=== PATIENT | male | born 1945 | race Caucasian/White ===

== ENCOUNTER 2016-08-10 06:05 | Inpatient (IN) | payer MEDICARE, BC ==
[~2016-08-10] VITALS: Ht 170.2 cm; Wt 69.7 kg
[~2016-08-10 06:05] MED LIST: ASA325 MG PO; BENTYL-DPS10 MG PO; CARDURA DPS8 MG PO; COLACE-DPS100 MG PO; FLEXERIL DPS5 MG PO; FLEXERIL-DPS10 MG PO; FLONASE 0.05% D16 GM NS; FLORAJEN460 MG PO; GAS-X125 MG PO; HYDROCODONE 5MG/5 MG PO; MEVACOR20 MG PO; NORVASC5 MG PO; OMEGA-3 DPS1000 MG PO; PAMELOR DPS25 MG PO; PROBIOTIC1 EAC1 PO; TYLENOL DPS325 MG PO; ULTRAM DPS50 MG PO; VITAMIN C500 M1 PO
[2016-08-12] MEDS ORDERED: VOLTAREN 1% GE100 GM TP (13:37)
[2016-08-12] MEDS ORDERED: CARDURA DPS8 MG PO (13:39)
[2016-08-12] MEDS ORDERED: VITAMIN D50000 UNIT PO (13:40)
[2016-08-12] MEDS ORDERED: NEURONTIN DPS100 MG PO ×2 (13:40→13:41)
[2016-08-12] MEDS ORDERED: MULTIPLE VITAM1 EACH PO (13:42)
[2016-08-12] MEDS ORDERED: MIRALAX PACKET17 GM PO (13:43)
[2016-08-12] MEDS ORDERED: SIMETHICONE125 M1 PO (13:44)
[2016-08-12] MEDS ORDERED: DELTASONE DPS5 MG PO (13:45)
[2016-08-12] MEDS ORDERED: SALINE MIST45 ML NS (13:46)
[2016-08-12] MEDS ORDERED: SPORTS CREAM85 GM TP (13:47)
[2016-08-12] MEDS ORDERED: SENOKOT S1 TAB PO (13:49)
[2016-08-12] MEDS ORDERED: OXY IR DPS5 MG PO (13:49)
[2016-08-12] MEDS ORDERED: PROTONIX40 MG PO (13:49)
[2016-08-12] MEDS ORDERED: BENTYL-DPS10 MG PO (13:59)
--- NOTE | 2016-08-12 17:31 | OR ---
ADMIT: 08/10/2016 RM/LOC: 518 [facility] MR#: [id number] [address] [address] DAPHNE AGUILERA [address] [place] [address] Operative/Delivery Room Report SEX: M AGE: 71 : 1945 SURGERY DATE: 08/10/2016 SURGEON: Kwame Alarcon MD CAN HANDLER: 1. Devin Benz PA-C. 2. MARCIAL Haile. PREOPERATIVE DIAGNOSIS: Left hip degenerative joint disease. POSTOPERATIVE DIAGNOSIS: Left hip degenerative joint disease. PROCEDURES: 1. Left anterior total hip arthroplasty. 2. Intra-articular Exparel block. ANESTHESIA: Spinal. COMPLICATIONS: None. ESTIMATED BLOOD LOSS: 200 mL. COMPONENTS: 1. A 52 mm Gription Garfield cup. 2. A hole eliminator. 3. A 36 mm neutral AltrX liner. 4. A 12 mm standard offset Corail stem. 5. A +5, 36 mm metal head. DESCRIPTION OF PROCEDURE: The patient was taken to the operating room. The correct hip was identified and marked in the preop holding area. The preoperative leg lengths were documented. The patient received a spinal anesthetic. At that point, the patient had traction boots applied. The patient was placed on the LAPORTE operative table. A perfect fluoroscopic AP pelvis was obtained along with a perfect AP of the operative hip and printed for preoperative templating purposes. At that point, the left hip was prepped and draped in a standard fashion and an anterior approach was performed. An incision was made lateral and inferior to the anterior superior iliac spine extending distally. Dissection was carried through subcutaneous tissue down to the tensor fascia. The fibers of the tensor fascia were identified in oblique fashion. The tensor fascia was then opened up along its muscle fibers. An Allis clamp was placed on the anterior fascial border. The tensor muscle itself was then swept off with blunt dissection and retracted posteriorly. At that point, the rectus was elevated off the anterior hip capsule. The lateral circumflex vessels were identified and cauterized. A Cobra retractor was placed above the superior femoral neck to retract the tensor posteriorly. The rest of the rectus was elevated off the anterior hip capsule and a second retractor was placed around the medial femoral neck. An L-shaped capsulotomy was perfomed through the hip capsule down to the ADMIT: 08/10/2016 RM/LOC: 518 [facility] MR#: [id number] [address] [address] WILLYDAPHNE KERR [facility] [place] [address] Operative/Delivery Room Report SEX: M AGE: 71 : 1945 intertrochanteric line and extended along the intertrochanteric line to the level of the lesser trochanter. Tag stitches were placed in the medial and lateral border of the hip capsule. We also released the superior hip capsule out of the trochanteric shoulder region. At that point, we placed our Cobra retractors in an intra-articular fashion for improved exposure to complete our capsular releases intra-articularly. A femoral neck cut was then made based on templating using the trochanteric shoulder as a bony landmark. We then externally rotated the hip 20 degrees for improved exposure and removed the femoral head from the acetabulum with no undue difficulty. Once the femoral head was removed, we again completed our capsular release around the inferior femoral neck to the level of lesser trochanter, released the superior capsule off the greater trochanteric shoulder in its entirety. We then placed slight traction on the femur in 20 degrees external rotation and placed a blunt-tip Cobra retractor over the anterior acetabular border. A second blunt Cobra was placed around the posterior acetabular border. All the remaining labrum was excised and a episiotomy performed to the inferior capsule to improve exposure. We cauterized the fovea and removed any remaining tissue in the depth of the acetabulum. We sequentially reamed the acetabulum under direct visualization up to a 51 mm size reamer. We elected to use a 52 mm size acetabular component. We put the acetabular component on a curved java developer consultant and placed it within the depths of the acetabulum. At that point we removed all retractors; brought in fluoroscopy; and again obtained a perfect AP of the pelvis followed by a perfect AP of the hip. Under fluoroscopic guidance, we impacted the acetabular component in approximately 45 degrees of inclination and 20 degrees of anteversion. We had an excellent press fit and no supplemental screws were required. Any peripheral osteophytes were circumferentially removed around the acetabular component. A hole eliminator was placed in the acetabular component and a neutral 36-mm AltrX liner was impacted within the acetabular component. A partial intra-articular block with Exparel was performed at this point in time. Once our acetabular preparation was completed, all the acetabular retractors were removed. We then exposed the femur by rotating it into neutral position and taking all traction off the femur. A femoral elevating hook was placed posterior to the trochanteric ridge. The foot was dropped down to 45 degrees and the leg maximally externally rotated no undue tension. We made sure our inferior capsular release was complete and placed a #1 retractor over the tip of the trochanter. Any remaining capsule was released off the tip of the trochanter and the piriformis tendon and a conjoined tendon were also released for exposure. At that point, you could feel the femur give, and we were able to elevate it up and out of the wound. The femur was externally rotated to approximately 120 degrees and the foot dropped to the floor as the leg was adducted. The trochanteric elevating hook was manually pulled in the anterior lateral direction as the elevating bar was raised to support it. At that point, we had excellent femoral exposure. A [place] retractor was placed over the tip of the trochanter and a femoral neck retractor around the medial calcar region to improve exposure. The proximal femur was opened with a box osteotome and a canal finder was used to identify the femoral canal. The proximal femur was sequentially broached up to a 12 mm Corail broach. We did ADMIT: 08/10/2016 RM/LOC: 518 [facility] MR#: [id number] [facility] [address] [place] [id number] DAPHNE AGUILERA [address] [place] [address] Operative/Delivery Room Report SEX: M AGE: 71 : 1945 overream the distal canal to be sure we did not have a distal femoral fit. At that point, we left the broach in the canal and calcar planed the neck. We then reduced the hip with a standard/high off-set femoral neck and a +5 x 36- mm head. All the retractors and femoral hook were removed. Using manual traction, we were able to reduce the hip into the acetabulum with no undue difficulty. A perfect fluoroscopic AP of the pelvis followed by a perfect AP of the hip was obtained and appropriate leg length and offset were confirmed. We replaced our femoral elevating hook posterior to the trochanter. A bone hook and manual traction were used to dislocate the hip, again externally rotating the femur in its entirety as the foot was dropped to the floor and leg adducted. We removed the trial components, replaced a [place] retractor, and a femoral neck retractor. The broach was removed and the appropriate real components opened. We then impacted a size 12 mm standard offset Corail stem down the femoral canal with excellent press-fit. We impacted a +5 x 36 mm metal/ceramic head on the trunnion. All retractors were removed, using manual traction the hip was reduced, and again was found to be stable. A final fluoroscopic AP pelvis and AP hip was obtained to confirm appropriate leg length, offset, and component positioning. We then irrigated out the wounds thoroughly and repaired the anterior capsular structures with #5 Ti-Cron. Our intra-articular Exparel block was completed including all soft tissues. The tensor fascia was repaired with a running and interrupted 0 Vicryl suture. We closed subQ with 2-0 Vicryl and ran a subcuticular Monocryl stitch. A Prineo hip wound dressing was applied and sterile dressings applied. The patient was taken off the HANA table, transferred to a standard OR bed, and taken to the recovery room in stable condition with no complications. Kwame Alarcon MD/ reinier JOB #: [id number] CC: Kwame Alarcon, Attending Physician Saurabh Sarmiento, Family Physician
--- NOTE | 2016-08-18 22:22 | HP ---
ADMIT: 08/10/2016 RM/LOC: [facility] MR#: [id number] [address] [address] [place] [address] Pre-OP History and Physical SEX: M AGE: 71 : 1945 DATE OF SERVICE: CHIEF COMPLAINT: Hip pain. HISTORY OF PRESENT ILLNESS: The patient is a 71-year-old male with long- standing history of left hip pain. The left hip pain limits his activity. The pain is all located in the groin. He has failed conservative care. Now being admitted for left total hip arthroplasty. PAST MEDICAL HISTORY: Chronic sinus issues, arthritis, hypertension, and rheumatoid arthritis. PAST SURGICAL HISTORY: Arthroscopy, back surgery, and carpal tunnel release. MEDICATIONS: Include: 1. Vitamin D. 2. Ibuprofen. 3. Ascorbic acid. 4. Gabapentin. 5. Aspirin. 6. Flovent. 7. Diclofenac. 8. Doxazosin. 9. Lovastatin. 10.Tramadol. 11.Amlodipine. ALLERGIES: CIPROFLOXACIN, DOXYCYCLINE, SULFA, AMOXICILLIN, TETRACYCLINE, CIPROZOL, METOPROLOL, AND CODEINE. SOCIAL HISTORY: Denies any significant tobacco or alcohol use. REVIEW OF SYSTEMS: Negative. PHYSICAL EXAMINATION: General: Healthy-appearing male, walks with antalgic gait. He has very limited left hip range of motion, can internally rotate to 10 degrees, externally rotate to 45, flex to 100. Leg lengths are equal. Good abductor strength. Leg is neurovascularly intact. ADMIT: 08/10/2016 RM/LOC: [facility] MR#: [id number] [address] [address] DAPHNE AGUILERA [address] [place] [address] Pre-OP History and Physical SEX: M AGE: 71 : 1945 DIAGNOSTIC DATA: X-rays, AP, lateral, show advanced left hip arthritis, subchondral cystic changes. No joint space remaining. IMPRESSION: 1. Advanced left hip degenerative joint disease. 2. Recent lumbar back fusion. PLAN: At this point, we talked about different options. He has failed conservative care. He has advanced hip arthritis. Underwent left anterior total hip arthroplasty. He is aware of the risks, benefits, and options and agreed to proceed. He has been seen and cleared from a medical standpoint. Kwame Alarcon MD/ reinier JOB #: [id number] CC: Kwame Alarcon, Attending Physician UNKNOWN, Family Physician
--- NOTE | 2016-09-05 10:37 | DS ---
ADMIT: 08/10/2016 RM/LOC: 506 [facility] MR#: [id number] [address] [address] DAPHNE AGUILERA [address] [place] [address] General Discharge Summary SEX: M AGE: 71 : 1945 ADMISSION DATE: 08/10/2016 DISCHARGE DATE: 08/11/2016 REASON FOR ADMISSION: Elective left total hip arthroplasty after failing conservative care. PREOPERATIVE DIAGNOSIS: Left hip degenerative joint disease. POSTOPERATIVE DIAGNOSIS: Left hip degenerative joint disease. PROCEDURE PERFORMED: Left anterior total hip arthroplasty. SURGEON: Dr. Kwame Alarcon. LOG YARD MANAGER: 1. Devin Benz PA-C. 2. MARCIAL Haile. ANESTHESIA: Spinal. COMPLICATIONS: None. ESTIMATED BLOOD LOSS: 200 mL. ACTIVE MEDICAL PROBLEMS: 1. Chronic sinus issues. 2. Arthritis. 3. Hypertension. 4. Rheumatoid arthritis. HOSPITAL COURSE: The patient was admitted on 08/10/2016 for elective left anterior total hip arthroplasty done successfully by Dr. Kwame Alarcon without any complications. The patient tolerated the procedure well. Postoperatively, did well with pain control with use of intraoperative Exparel and postoperative oral analgesics. The patient did suffer from some mild acute blood loss anemia and his hemoglobin dropped to 10.4 on 08/11/2016, but he remained hemodynamically stable and did not require blood transfusion. By postoperative day #1, he was safe and participated well with physical therapy. He was stable and ready for discharge home with plans for outpatient physical therapy per anterior total hip arthroplasty protocol with home care instructions. DISCHARGE MEDICATIONS: 1. Amlodipine 5 mg every day. 2. Ascorbic acid 500 mg every day. 3. Aspirin 325 mg at bedtime for five weeks. 4. Diclofenac 3% gel four times daily. 5. Dicyclomine 10 mg before meals and at bedtime. 6. Doxazosin 4 mg at bedtime. ADMIT: 08/10/2016 RM/LOC: 506 [facility] MR#: [id number] 2620 [facility] [address] [place] [id number] DAPHNE AGUILERA [address] [place] [address] General Discharge Summary SEX: M AGE: 71 : 1945 7. Fluticasone 50 mcg everyday to nostrils. 8. Ergocalciferol 50,000 units every Tuesday. 9. Gabapentin 200 mg twice daily. 10.Gabapentin 500 mg at bedtime. 11.Lovastatin 20 mg at bedtime. 12.Simethicone 125 mg every five hours as needed. 13.Prednisone 6 mg everyday. 14.Aspercreme 10% cream daily as needed. 15.Tramadol 100 mg every five hours for three days, then every four to six hours as needed for pain. 16.Oxycodone 5 to 10 mg every four to five hours as needed for breakthrough pain. 17.Protonix 40 mg at bedtime. 18.Senokot two tablets at bedtime. 19.Tylenol 650 mg every six hours as needed. DISCHARGE INSTRUCTIONS: The patient was discharged home with plans for outpatient physical therapy per anterior total hip arthroplasty protocol. Follow up in the orthopedic office in two weeks for wound check and in six weeks with x-rays. Follow up with primary care as directed. MARCIAL Haile / Kwame Alarcon MD / reinier JOB #: [id number] CC: Kwame Alarcon MD, Attending Physician Saurabh Sarmiento MD, Family Physician
== END 2016-08-11 16:55 | disposition home or self-care (01) | DRG 470 ==
LOC: 5MS 06:05 → WOR 06:05 → 5MS 10:51
PROVIDERS: ADMIT Orthopaedic Surgery
PROC: 0SRB02A Replacement of Left Hip Joint with Metal on Polyethylene Synthetic Substitute, Uncemented, Open Approach (ICD-10-PCS; principal; 2016-08-10)
DX: M16.12 Unilateral primary osteoarthritis, left hip (principal); M06.9 Rheumatoid arthritis, unspecified; E83.42 Hypomagnesemia; D62 Acute posthemorrhagic anemia; I10 Essential (primary) hypertension; N40.0 Benign prostatic hyperplasia without lower urinary tract symptoms; E87.6 Hypokalemia; J30.9 Allergic rhinitis, unspecified; M35.3 Polymyalgia rheumatica; M54.16 Radiculopathy, lumbar region; G56.20 Lesion of ulnar nerve, unspecified upper limb; E55.9 Vitamin D deficiency, unspecified; K21.9 Gastro-esophageal reflux disease without esophagitis; E78.5 Hyperlipidemia, unspecified; Z98.1 Arthrodesis status; Z79.52 Long term (current) use of systemic steroids